=== PATIENT | male | born 1985 | race Two or more races ===

== ENCOUNTER 2018-05-27 20:14 | Inpatient (IN) | payer SELFPAY ==
[~2018-05-27] VITALS: Ht 175.3 cm; Wt 82.8 kg
[2018-05-27 20:36] VITALS: Ht 175.3 cm; Wt 82.8 kg
[2018-05-27 21:42] LABS: BASOPHIL % 0.6 % (0-2); PLATELET COUNT 280 x10^3mcL (130-400); RED CELL DISTRIBUTION WIDTH 14.2 % (11.5-14.5)
[2018-05-27 21:53] LABS: CALCIUM 8.6 mg/dL (8.5-10.1); CARBON DIOXIDE 24.7 mmol/L (21-32); CHLORIDE SERUM 100 mmol/L (98-107); GFR1 > 60 mL/min; GLUCOSE SERUM 110 mg/dL (74-106); POTASSIUM SERUM 3.7 mmol/L (3.5-5.1); SODIUM SERUM 139 mmol/L (136-145)
[2018-05-27 21:59] LABS: ALKALINE PHOSPHATASE 75 U/L (46-116); ALT/SGPT 48 U/L (16-63); AST/SGOT 34 U/L (15-37); BILIRUBIN TOTAL 0.3 mg/dL (0.20-1.00); TOTAL PROTEIN, SERUM 7.9 g/dL (6.4-8.2)
[2018-05-27 23:48] VITALS: BP 119/68
[2018-05-28 01:41] LABS: MAGNESIUM 2.5 mg/dL (1.8-2.4); PHOSPHOROUS 2.7 mg/dL (2.5-4.9)
[2018-05-28 01:43] LABS: CHOLESTEROL/HDL RATIO 2.1
[2018-05-28 01:50] LABS: FREE T4 0.91 ng/dL (0.76-1.46); FREE THYROXINE INDEX 2.4 ug/dL (1.4-4.5); T4(THYROXINE) 6.1 ug/dL (4.7-13.3)
[2018-05-28 04:15] LABS: T3 TOTAL 0.62 ng/mL
[2018-05-28 04:24] VITALS: BP 109/65
[2018-05-28 06:47] LABS: BASOPHIL % 0.6 % (0-2); PLATELET COUNT 252 x10^3mcL (130-400); RED CELL DISTRIBUTION WIDTH 14.5 % (11.5-14.5)
[2018-05-28 06:57] LABS: CALCIUM 7.8 mg/dL (8.5-10.1); CARBON DIOXIDE 26.9 mmol/L (21-32); CHLORIDE SERUM 102 mmol/L (98-107); CREATININE SERUM 0.9 mg/dL (0.7-1.3); GFR1 > 60 mL/min; GLUCOSE SERUM 85 mg/dL (74-106); MAGNESIUM 2.1 mg/dL (1.8-2.4); PHOSPHOROUS 2.6 mg/dL (2.5-4.9); POTASSIUM SERUM 3.6 mmol/L (3.5-5.1); SODIUM SERUM 141 mmol/L (136-145)
[2018-05-28 08:20] VITALS: BP 133/77
[2018-05-28 11:45] LABS: microscopic required? YES; urine erythrocyte TRACE (NEGATIVE)
[2018-05-28 12:12] LABS: AMPHETAMINE QUAL UR NONE DETECTED (See below)
[2018-05-28 16:20] VITALS: BP 126/78
[2018-05-28 17:33] LABS: BASOPHIL % 0.4 % (0-2); PLATELET COUNT 236 x10^3mcL (130-400); RED CELL DISTRIBUTION WIDTH 13.9 % (11.5-14.5)
[2018-05-28 21:27] VITALS: BP 126/80
[2018-05-29 05:22] VITALS: BP 130/88
[2018-05-29 06:49] LABS: CALCIUM 8.1 mg/dL (8.5-10.1); CARBON DIOXIDE 28.1 mmol/L (21-32); CHLORIDE SERUM 99 mmol/L (98-107); CREATININE SERUM 0.9 mg/dL (0.7-1.3); GFR1 > 60 mL/min; GLUCOSE SERUM 96 mg/dL (74-106); MAGNESIUM 2.1 mg/dL (1.8-2.4); PHOSPHOROUS 2.6 mg/dL (2.5-4.9); POTASSIUM SERUM 3.2 mmol/L (3.5-5.1); SODIUM SERUM 133 mmol/L (136-145)
[2018-05-29 07:07] LABS: BASOPHIL % 0.3 % (0-2); PLATELET COUNT 204 x10^3mcL (130-400); RED CELL DISTRIBUTION WIDTH 13.9 % (11.5-14.5)
[2018-05-29 08:07] VITALS: BP 140/92
[2018-05-29 11:42] VITALS: BP 140/102
[2018-05-29 18:13] VITALS: BP 131/94
== END 2018-05-29 19:41 | disposition left against medical advice (07) | DRG 368 ==
LOC: ED 20:14 → DU 22:56
PROVIDERS: Emergency Medicine; ADMIT Internal Medicine
DX: K22.6 Gastro-esophageal laceration-hemorrhage syndrome (principal); G92 Toxic encephalopathy; F10.239 Alcohol dependence with withdrawal, unspecified; Z53.21 Procedure and treatment not carried out due to patient leaving prior to being seen by health care provider; Z60.2 Problems related to living alone; K20.8 Other esophagitis; K29.21 Alcoholic gastritis with bleeding; Y90.8 Blood alcohol level of 240 mg/100 ml or more; E78.5 Hyperlipidemia, unspecified; E83.41 Hypermagnesemia; R73.03 Prediabetes; Z79.899 Other long term (current) drug therapy
CPT/HCPCS: 84439; C9113; G0480; J2060; J2405; J3010; J7030; Q0092

== ENCOUNTER 2018-07-21 15:31 | Emergency (ER) | payer SELFPAY ==
[~2018-07-21] VITALS: Ht 170.2 cm; Wt 78.9 kg
[2018-07-21 15:45] VITALS: Ht 170.2 cm; Wt 78.9 kg
[2018-07-21 16:55] LABS: BASOPHIL % 0.7 % (0-2); PLATELET COUNT 278 x10^3mcL (130-400)
[2018-07-21 16:56] LABS: RED CELL DISTRIBUTION WIDTH 15.3 % (11.5-14.5)
[2018-07-21 17:09] LABS: CARBON DIOXIDE 27.4 mmol/L (21-32); CHLORIDE SERUM 96 mmol/L (98-107); GFR1 > 60 mL/min; GLUCOSE SERUM 112 mg/dL (74-106); POTASSIUM SERUM 3.7 mmol/L (3.5-5.1); SODIUM SERUM 136 mmol/L (136-145)
[2018-07-21 17:13] LABS: ALKALINE PHOSPHATASE 63 U/L (46-116); ALT/SGPT 38 U/L (16-63); AST/SGOT 33 U/L (15-37); BILIRUBIN TOTAL 0.75 mg/dL (0.20-1.00); MAGNESIUM 1.7 mg/dL (1.8-2.4); TOTAL PROTEIN, SERUM 7.7 g/dL (6.4-8.2)
[2018-07-21 19:58] VITALS: BP 136/80
== END 2018-07-21 19:58 | disposition home or self-care (01) ==
LOC: ED 15:31
PROVIDERS: Emergency Medicine
DX: F10.129 Alcohol abuse with intoxication, unspecified (principal); R25.1 Tremor, unspecified
CPT/HCPCS: G0480; J2060; J3490